=== PATIENT | female | born 1980 | race Hispanic/Latino ===

== ENCOUNTER 2018-04-19 09:42 | Inpatient (IN) | payer MEDICAID, OTHER, SELFPAY ==
[2018-04-19] MEDS: Lactated Ringer's 1,000 ML IV SCH ×2 (10:45→22:50)
[2018-04-19] MEDS ORDERED: Ondansetron PF 4 MG/2 ML Vial IVP PRN ×3 (10:49→22:22)
[2018-04-19] MEDS ORDERED: Bicitra 30 ML UDCUP PO SCH (10:49)
[2018-04-19 11:05] LABS: Hemoglobin 13.6 g/dL (12.0-16.0); Mean Corpuscular HGB CONC 33.6 g/dL (32.0-36.0); Mean Corpuscular Hemoglobin 30.1 pg (27.0-31.0); Mean Corpuscular Volume 89.3 fL (78.0-98.0); Mean Platelet Volume 7.1 fL (7.4-10.4); Platelet Count 299 thou/uL (130-400); RBC Distribution Width 12.9 % (11.5-14.5); Red Blood Cell (RBC) Count 4.54 mill/uL (4.20-5.40); White Blood Cell (WBC) Count 8.8 thou/uL (4.8-10.8)
[2018-04-19 11:44] VITALS: BMI 49.1
[2018-04-19] MEDS ORDERED: CEFAZOLIN 3 GM in Sodium Chloride 0.9% 100 ML IVPB SCH (11:45)
[2018-04-19] MEDS ORDERED: CEFAZOLIN/Water 2 GM/20 ML SYRINGE SLOW IVP SCH (11:50)
[2018-04-19 11:58] LABS: HBSAg Index 0.21 S/CO (0-0.99); Hep B Surf Ag Non-Reactive S/CO (NonReactive)
[2018-04-19 12:05] LABS: Syphilis Antibody Nonreactive (Nonreactive); Syphilis Antibody Index 0.03 S/CO (<1.00 Non-Reactive)
[2018-04-19] MEDS ORDERED: Oxytocin 10 UNITS/ML VIAL ONE (12:28)
[2018-04-19] MEDS ORDERED: Ondansetron PF 4 MG/2 ML Vial ONE (12:28)
[2018-04-19] MEDS ORDERED: Morphine PF 1 MG/ML SYR ONE (12:28)
[2018-04-19] MEDS ORDERED: ePHEDrine/0.9% NaCl/PF SYRINGE 50 mg/10 ml ONE (12:28)
[2018-04-19] MEDS ORDERED: L&D-Morphine 4 MG/ML VIAL SLOW IVP PRN (13:50)
[2018-04-19] MEDS ORDERED: Ondansetron HCl/PF 4 MG/2 ML Vial IVP PRN (13:50)
[2018-04-19] MEDS ORDERED: Meperidine HCl/PF 25 MG/ML VIAL SLOW IVP PRN (13:50)
[2018-04-19] MEDS ORDERED: HYDROmorphone 2 MG/ML VIAL SLOW IVP PRN (13:50)
[2018-04-19] MEDS ORDERED: diphenhydrAMINE 50 MG/ML VIAL IVP PRN (13:51)
[2018-04-19] MEDS ORDERED: Eucerin (Mineral Oil/Petrolatum,White) 30 gm Jar TOP PRN (13:51)
[2018-04-19] MEDS ORDERED: Naloxone HCl 0.4 mg/ml Vial IVP PRN ×2 (13:51)
[2018-04-19] MEDS ORDERED: Promethazine HCl 25 MG/ML VIAL IM PRN (13:51)
[2018-04-19] MEDS ORDERED: Naloxone HCl 0.4 mg/ml Vial IV PRN (13:51)
[2018-04-19] MEDS ORDERED: Promethazine HCl 25 MG SUPP PR PRN (13:51)
[2018-04-19] MEDS ORDERED: Communication Order-Pharmacy FS SCH (14:00)
[2018-04-19] MEDS ORDERED: Ketorolac Tromethamine 30 MG/ML VIAL IVP SCH (14:00)
[2018-04-19] MEDS ORDERED: NS / Oxytocin 40 units/1000ml 1,000 ML ONE (14:27)
[2018-04-19] MEDS ORDERED: Ketorolac Tromethamine 30 MG/ML VIAL ONE (15:06)
--- NOTE | 2018-04-19 15:48 | PDOC.OPDEL ---
OB Operative/Delivery Note Delivery Dr/Surgeon: Dr. Caballero Assist: Dr. Triana- PGY-2 Procedure/Post Delivery Dx: repeat low transverse CS Anesthesia: spinal - Findings A Sex: male - 1 min: 9 - 5 min: 9 - Additional Findings/Plan findings: low transverse hysterotomy without extension Estimated blood loss: 300 Compilations/Other Findings: PREOPERATIVE DIAGNOSES: 1. Intrauterine at term. 2. Previous LTCS POSTOPERATIVE DIAGNOSES: 1. Intrauterine at term. 2.Repeat LTCS PROCEDURE PERFORMED: Repeat low-transverse section. ANESTHESIA: Spinal ESTIMATED BLOOD LOSS: 300 ml COMPLICATIONS: None. INDICATIONS: The patient is a 37 year-old ,who presented @ 39 weeks for elective repeat . PROCEDURE NOTE: The patient was taken to the operating room where spinal anesthesia was initiated. The patient was prepped and draped in the usual sterile fashion in the dorsal supine position with a left-winkler tilt. A Pfannenstiel skin incision was made with the scalpel and carried through to the underlying layer of fascia. The fascia was incised in the midline and extended laterally using Martinez scissors. Babar clamps were used to elevate the superior aspect of the fascial incision, which was elevated, and the underlying rectus muscles were dissected off bluntly and using Martinez scissors. Attention was then turned to the inferior aspect of the fascial incision, which in similar fashion was grasped with Babar clamps, elevated, and the underlying rectus muscles were dissected off bluntly and using Martinez scissors. The rectus muscles were dissected in the midline. The peritoneum was bluntly dissected, entered, and extended superiorly and inferiorly with Martinez scizzors with good visualization of the bladder. The bladder blade was inserted. The vesicouterine peritoneum was identified with pickups and entered sharply using Metzenbaum scissors. This incision was extended laterally and the bladder flap was created digitally. The bladder blade was reinserted. The lower uterine segment was incised in a transverse fashion using the scalpel and extended using manual traction. Clear fluid was noted. The infant was delivered with vacuum assistance. Only 1 pull on the vacuum was required. The nose and mouth were bulb suctioned. The cord was clamped and cut. The infant was subsequently handed to the awaiting nursery nurse. Next, cord blood was obtained. Subsequent to the collection of this blood, the placenta was removed spontaneously intact with a 3-vessel cord noted. The uterus was exteriorized and cleared of all clots and debris. The bladder blade was replaced and the uterus was closed with running locking 0- vicryl. Two horizontal mattress stitches had to be placed at both ends. Following this hemostasis was noted. Abdomen was irrigated w/ saline and suctioned free of clots. The uterus was internalized and the hysterotomy was again noted to be hemostatic. Fascia was closed with a running non-locking O- Vicryl suture. Subcutaneous layer was irrigated and there was not bleeders., the subcutaneous layer was closed with 3-0 plain gut, and the skin was closed with ramesh. Sponge, lap, and instrument counts were correct x2. The patient was stable at the completion of the procedure and was subsequently transferred to the recovery room in stable condition. Post delivery plan: recovery in LICU
[2018-04-19] MEDS ORDERED: Meperidine HCl/PF 25 MG/ML VIAL IM PRN (22:22)
[2018-04-19] MEDS ORDERED: HYDROcodone/Acetaminophen 5/325 mg Tablet PO PRN (22:22)
[2018-04-19] MEDS ORDERED: Lanolin Ointment 7 GM TUBE TOP PRN (22:22)
[2018-04-19] MEDS ORDERED: Bisacodyl 10 MG SUPP PR PRN (22:22)
[2018-04-19] MEDS ORDERED: diphenhydrAMINE 25 MG CAP PO PRN (22:22)
[2018-04-20] MEDS: Ketorolac Tromethamine 30 MG/ML VIAL IVP PRN ×2 (00:21→06:39)
[2018-04-20] MEDS ORDERED: Ibuprofen 800 MG TAB PO SCH (06:00)
[2018-04-20] MEDS: Simethicone Chewable 80 MG TAB PO PRN ×2 (06:39→17:16)
[2018-04-20 07:08] LABS: Hemoglobin 11.9 g/dL (12.0-16.0); Mean Corpuscular HGB CONC 32.6 g/dL (32.0-36.0); Mean Corpuscular Hemoglobin 30.7 pg (27.0-31.0); Mean Corpuscular Volume 94.5 fL (78.0-98.0); Mean Platelet Volume 7.6 fL (7.4-10.4); Platelet Count 235 thou/uL (130-400); RBC Distribution Width 13.2 % (11.5-14.5); Red Blood Cell (RBC) Count 3.87 mill/uL (4.20-5.40); White Blood Cell (WBC) Count 9.8 thou/uL (4.8-10.8)
[2018-04-20] MEDS ORDERED: Adacel (T-DAP) 0.5 ML SYRINGE IM ONE (09:00)
[2018-04-20] MEDS: Ferrous Sulfate 325 MG TAB PO SCH ×2 (09:09→16:59)
[2018-04-20] MEDS: Prenatal Vitamin 1 TAB PO SCH (09:45)
[2018-04-20] MEDS: Docusate Calcium (SURFAK) 240 MG CAP PO SCH ×2 (09:45→21:07)
[2018-04-20] MEDS: HYDROcodone/Acetaminophen 5/325 mg Tablet PO PRN ×2 (09:47→17:16)
[2018-04-20] MEDS: Ibuprofen 800 MG TAB PO SCH ×2 (13:41→21:06)
[2018-04-21] MEDS: Ibuprofen 800 MG TAB PO SCH (06:04)
[2018-04-21] MEDS: Docusate Calcium (SURFAK) 240 MG CAP PO SCH (09:05)
[2018-04-21] MEDS: Prenatal Vitamin 1 TAB PO SCH (09:05)
[2018-04-21] MEDS: Ferrous Sulfate 325 MG TAB PO SCH (09:06)
[2018-04-21] MEDS: HYDROcodone/Acetaminophen 5/325 mg Tablet PO PRN (11:22)
[2018-04-21 12:05] VITALS: BP 139/78
[2018-04-21 12:12] VITALS: TEMP 98.6
== END 2018-04-21 13:15 | disposition home or self-care (01) | DRG 788 ==
LOC: L&D 09:42 → 3SW 15:37
PROVIDERS: ADMIT Family Medicine; ATTEND Family Medicine
PROC: 10D00Z1 Extraction of Products of Conception, Low, Open Approach (ICD-10-PCS; principal; 2018-04-19)
DX: O34.211 Maternal care for low transverse scar from previous cesarean delivery (principal); O99.214 Obesity complicating childbirth; E66.01 Morbid (severe) obesity due to excess calories; Z3A.39 39 weeks gestation of pregnancy; Z37.0 Single live birth
CPT/HCPCS: 36415; 51702; 85027; 86780; 86850; 86900; 86901; 87340; J0690; J1885; J2274; J2405; J2590; J7050